=== PATIENT | male | born 1995 ===

== ENCOUNTER 2020-10-10 18:59 | Emergency (ER) | payer SELFPAY ==
[~2020-10-10] VITALS: Ht 170.2 cm; Wt 80.0 kg
--- NOTE | 2020-10-10 19:15 | NUR ---
ASSUMED CARE OF PT. JANES TSE. WAS FOUND PASSED OUT ON GROUND, IS ETOH ONLY ORIENTED TO SELF. STEADY ON HIS FEET, BLOOD SUGAR WAS 102. PER [place] PT IS ONLY HERE TO AVOID POLICE CUSTODY. PT REQUESTED TO GO TO RESTROOM, AND AMBULTED THERE AND INSTRUCTED TO PROVIDE URINE SAMPLE.
--- NOTE | 2020-10-10 19:29 | NUR ---
PRESENT RIGHT NOW. PT IS VERY DROWSY, WILL WAKE UP AND ANSWER QUESTIONS THEN DRIFT BACK TO SLEEP. HE WAS STATING, "I WANT TO GO HOME" NADN. CALL LIGHT W/IN REACH.
[2020-10-10] MEDS ORDERED: THIAMINE 100 MG/ML, 2ML ONE (19:42)
--- NOTE | 2020-10-10 19:56 | NUR ---
PT IS SLEEPING, NADN, CALL LIGHT W/IN REACH. SIDERAIL UPX2.
[2020-10-10] MEDS ORDERED: THIAMINE 100 MG/ML, 2ML IM ONE (20:00)
[2020-10-10 20:36] VITALS: BP 118/65
--- NOTE | 2020-10-10 20:36 | NUR ---
PT SLEEPING ON GURNEY, HIS SPO02 WENT DOWN TO 84, PLACED ON 2 LNC. SIDE RAIL UPX2, VSS, NADN. CALL LIGHT W/IN REACH.
--- NOTE | 2020-10-10 20:58 | NUR ---
sbar report to [facility].
--- NOTE | 2020-10-10 21:15 | NUR ---
PT SLEEPING ON GURNEY. RESP EVEN AND UNLABORED. PT CONNECTED TO MONITORING.
--- NOTE | 2020-10-10 21:57 | NUR ---
PT AWAKE, A&OX4. PT AMBULATED TO RESTROOM WITH STEADY GAIT. PT READY TO BE DC.
--- NOTE | 2020-10-10 22:07 | NUR ---
PT STATES WILL CALL FRIEND OR RIDE SHARE TO GET HOME.
== END 2020-10-10 22:08 | disposition home or self-care (01) ==
LOC: ED 21:28
DX: F10.129 Alcohol abuse with intoxication, unspecified (principal); Y90.0 Blood alcohol level of less than 20 mg/100 ml
CPT/HCPCS: 99283